=== PATIENT | female | born 1965 | race Caucasian/White ===

== ENCOUNTER 2018-09-02 09:41 | Emergency (ER) | payer BC ==
[~2018-09-02] VITALS: Ht 162.6 cm; Wt 52.2 kg
[2018-09-02] MEDS ORDERED: HORMONE REPLACEMENT (09:49)
[2018-09-02] MEDS ORDERED: ESCI5TAB PO (09:49)
[2018-09-02 10:11] LABS: BASOPHILS % (AUTO) 0.3 % (0.0-2.0); HEMATOCRIT 41 % (33-45); HEMOGLOBIN 14.1 g/dL (11.5-14.8); LYMPHOCYTES # (AUTO) 1.6 /CMM (0.8-4.8); LYMPHOCYTES % (AUTO) 14.8 % (20.0-44.0); MEAN CORPUSCULAR HGB CONC 35 g/dl (31.0-36.0); MEAN CORPUSCULAR VOLUME 97 fL (82-100); MONOCYTES # (AUTO) 0.5 /CMM (0.1-1.30); MONOCYTES % (AUTO) 4.8 % (2.0-12.0); NEUTROPHILS # (AUTO) 7.8 /CMM (1.8-8.9); NEUTROPHILS % (AUTO) 72.1 % (43.0-81.0); PLATELET COUNT (AUTO) 252 /CMM (150-450); WHITE BLOOD COUNT (AUTO) 10.9 K/uL (4.3-11.0)
[2018-09-02 10:17] LABS: CALCIUM, SERUM 8.7 mg/dL (8.5-10.1); CARBON DIOXIDE 28 mmol/L (21-32); CHLORIDE 105 mmol/L (98-107); CREATININE 1.1 mg/dL (0.6-1.3); GLUCOSE 89 mg/dL (74-106); POTASSIUM 3.5 mmol/L (3.5-5.1); SODIUM SERUM 141 mmol/L (136-145); UREA NITROGEN, BLOOD 19 mg/dL (7-18)
[2018-09-02 10:30] LABS: ALANINE AMINOTRANSFERASE 21 U/L (12-78); ALBUMIN 3.6 g/dL (3.4-5.0); ALKALINE PHOSPHATASE 62 U/L (46-116); ASPARTATE AMINOTRANSFERASE 24 U/L (15-37); B-TYPE NATRIURETIC PEPTIDE 158 PG/ML (0-125); BILIRUBIN,DIRECT 0.1 mg/dL (0.0-0.2); BILIRUBIN,TOTAL 0.5 mg/dL (0.2-1.0); TOTAL PROTEIN, SERUM 6.8 g/dL (6.4-8.2)
[2018-09-02 11:12] LABS: D-DIMER 0.47 mg/L(FEU (0.17-0.50)
[2018-09-02 11:36] VITALS: BP 116/69
--- NOTE | 2018-09-02 11:38 | NUR ---
For discharge Patient discharged to home in stable condition. Written and verbal after care instructions given. Patient verbalizes understanding of instruction. Home Ambulatory Stable
== END 2018-09-02 11:37 | disposition home or self-care (01) ==
LOC: ER 09:44
DX: R06.02 Shortness of breath (principal); G47.00 Insomnia, unspecified
CPT/HCPCS: 36415; 71045-TC; 80048-TC; 80076-TC; 83880; 84484-TC; 85025-TC; 85378-TC; 85730-TC